=== PATIENT | female | born 1995 | race Caucasian/White ===

== ENCOUNTER 2020-07-23 18:14 | Emergency (ER) | payer OTHER ==
[~2020-07-23] VITALS: Ht 157.5 cm; Wt 73.2 kg
[2020-07-23] MEDS ORDERED: VITMTA PO (18:20)
--- NOTE | 2020-07-23 18:50 | REP ---
INDICATION: twisting/fall injury 07/22/20 COMPARISON: None. TECHNIQUE: AP, lateral, bilateral oblique and sunrise views. FINDINGS: The osseous structures and joint spaces are intact and normal. There is no evidence for acute fracture or dislocation. No joint effusion is appreciated. Surrounding soft tissues are unremarkable. No subcutaneous emphysema or radiodense foreign body. IMPRESSION: Normal examination. No acute fracture or dislocation. <Electronically signed by Smooth Awad > 07/23/20 0521
[2020-07-23] MEDS ORDERED: NAPR-837 PO (19:23)
[2020-07-23] MEDS ORDERED: NAPROXEN 250 MG TAB PO ONE (19:25)
[2020-07-23 20:02] VITALS: BP 112/72
== END 2020-07-23 20:06 | disposition home or self-care (01) ==
LOC: M ED 18:14
DX: S89.92XA Unspecified injury of left lower leg, initial encounter (principal); X50.0XXA Overexertion from strenuous movement or load, initial encounter; Y92.019 Unspecified place in single-family (private) house as the place of occurrence of the external cause; Y93.9 Activity, unspecified; Y99.9 Unspecified external cause status

== ENCOUNTER → 2020-08-08 | Outpatient (CLI) | payer OTHER ==
[~2020-08-08] MED LIST: NAPR-837 PO; VITMTA PO
--- NOTE | 2020-08-08 13:31 | REP ---
INDICATION: LT KNEE SPRAIN. COMPARISON: None. TECHNIQUE: Sagittal spin-echo proton density, T2 STIR and T2 FLASH. Coronal spin-echo proton density and fat suppressed proton density. Axial fat suppressed proton density. FINDINGS: The anterior and posterior horns of the medial meniscus are within normal limits. The anterior and posterior horns of the lateral meniscus are within normal limits. The anterior and posterior cruciate ligaments are intact. The quadriceps and patellar tendons are intact. The medial and lateral collateral ligaments are intact. The medial and lateral patellar retinacula are intact. The articular cartilages are within normal limits. There is no joint effusion or Sheikh's cyst. There is a slight degree of T2 hyper signal seen in the posterior proximal medial tibial metaphysis. IMPRESSION: There is a slight degree of marrow edema in the proximal medial tibial metaphysis posteriorly consistent with a slight osseous contusion. There is no evidence of acute internal derangement. <Electronically signed by Tristin Angeles > 08/08/20 [id number]
== END ==
LOC: M RAD 11:42
PROVIDERS: ATTEND Physician Assistant
DX: S83.92XA Sprain of unspecified site of left knee, initial encounter (principal); X58.XXXA Exposure to other specified factors, initial encounter; Y92.9 Unspecified place or not applicable

== ENCOUNTER 2020-10-02 11:26 | Emergency (ER) | payer OTHER ==
[~2020-10-02] VITALS: Ht 157.5 cm; Wt 74.7 kg
[2020-10-02 16:38] LABS: BASO % 0.4 % (0.0-1.0); EOS # 0.1 10^3/uL (0.0-0.5); EOS % 0.7 % (0.0-3.0); HEMOGLOBIN 14.1 g/dl (12.0-15.5); LYMPH # 2.5 10^3/uL (1.5-5.0); LYMPH % 29.7 % (24.0-44.0); MEAN CORPUSCULAR HEMOGLOBIN 29.5 pg (27.0-33.0); MEAN CORPUSCULAR HGB CONC 33.6 g/dl (32.0-36.5); MEAN CORPUSCULAR VOLUME 87.9 fl (80.0-96.0); MONO # 0.5 10^3/uL (0.0-0.8); MONO % 6.3 % (2.0-8.0); NEUTROPHILS # 5.3 10^3/uL (1.5-8.5); NEUTROPHILS % 62.7 % (36.0-66.0); PLATELET COUNT, AUTOMATED 288 10^3/uL (150-450); RED BLOOD COUNT 4.78 10^6/uL (4.00-5.40); WHITE BLOOD COUNT 8.5 10^3/uL (4.0-10.0)
[2020-10-02 16:53] LABS: INR 0.93; PROTHROMBIN TIME 12.9 SECONDS (12.7-14.5)
[2020-10-02 16:56] LABS: D-DIMER QUANT 1240.21 ng/ml (<500)
[2020-10-02 17:11] LABS: ALBUMIN 3.6 GM/DL (3.2-5.2); ALT/SGPT 33 U/L (12-78); BILIRUBIN,DIRECT < 0.1 MG/DL (0.0-0.2); BILIRUBIN,TOTAL 0.3 MG/DL (0.2-1.0); CK-MB VALUE MASS < 1.0 NG/ML (<3.6); CPK CREATINE PHOSPHOKINASE 104 U/L (26-192); MB/CK RELATIVE INDEX 0.96 (< OR =4); THYROXINE (T4) 10.6 UG/DL (4.5-12.0); TOTAL PROTEIN 7.4 GM/DL (6.4-8.2); TROPONIN I < 0.02 NG/ML (< 0.10)
[2020-10-02] MEDS ORDERED: ISOVUE-370 76% 100ML VIAL As Ordered ONE (18:05)
--- NOTE | 2020-10-02 18:46 | REP ---
INDICATION: DYSPNEA/COUGH. COMPARISON: None. FINDINGS: The superior mediastinal structures are midline. The cardiac silhouette is unremarkable in size, shape, and position. The diaphragmatic surfaces of the lungs are regular, and the costophrenic angles are clear. The pulmonary curry are clear. The imaged osseous structures are intact. IMPRESSION: There is no acute cardiopulmonary disease. <Electronically signed by Tristin Angeles > 10/02/20 [id number]
--- NOTE | 2020-10-02 19:33 | REPVR ---
PROCEDURE INFORMATION: Exam: CTA Chest With Contrast Exam date and time: 10/02/2020 6:33 PM Age: 25 years old Clinical indication: Shortness of breath; Additional info: SOB, pleuritic pain, elevated dimer, R/O pe TECHNIQUE: Imaging protocol: Computed tomographic angiography of the chest with contrast. 3D rendering (Not supervised by radiologist): MIP and/or 3D reconstructed images were created by the technologist. Radiation optimization: All CT scans at this facility use at least one of these dose optimization techniques: automated exposure control; mA and/or kV adjustment per patient size (includes targeted exams where dose is matched to clinical indication); or iterative reconstruction. Contrast material: ISOVUE 370; Contrast volume: 75 ml; Contrast route: INTRAVENOUS (IV); COMPARISON: CR Chest, 2 view PA, Lat 10/02/2020 5:25 PM FINDINGS: Pulmonary arteries: Normal. No pulmonary emboli. Aorta: Unremarkable. No aortic aneurysm. No aortic dissection. Lungs: Unremarkable. No consolidation. No masses. Pleural spaces: Unremarkable. No pneumothorax. No pleural effusion. Heart: Unremarkable. No cardiomegaly. No pericardial effusion. Lymph nodes: Unremarkable. No enlarged lymph nodes. Bones/joints: Unremarkable. No acute fracture. Soft tissues: Unremarkable. IMPRESSION: No pulmonary embolism. Electronically signed by: Jl Perez On 10/02/2020 19:32:48 PM
[2020-10-02] MEDS ORDERED: PROV108A INH (19:51)
[2020-10-02 20:20] VITALS: BP 126/70
--- NOTE | 2020-10-03 07:12 | ECGEPIP ---
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
== END 2020-10-02 20:33 | disposition home or self-care (01) ==
LOC: M ED 11:26
DX: J06.9 Acute upper respiratory infection, unspecified (principal); B34.8 Other viral infections of unspecified site; B34.1 Enterovirus infection, unspecified; R05 Cough; R07.89 Other chest pain; J00 Acute nasopharyngitis [common cold]; R01.1 Cardiac murmur, unspecified; Z87.59 Personal history of other complications of pregnancy, childbirth and the puerperium
CPT/HCPCS: 36415; 71046; 71275; 80047; 80076; 81001; 82550; 82553; 84436; 84443; 84484; 84702; 85025; 85379; 85610; 87798; 93005; 99284; Q9967

== ENCOUNTER 2021-03-05 13:14 | Emergency (ER) | payer OTHER ==
[~2021-03-05] VITALS: Ht 157.5 cm; Wt 77.5 kg
[~2021-03-05 13:14] MED LIST changes: +PROV108A INH
[2021-03-05] MEDS ORDERED: ONDANSETRON 4 MG ORAL DISINTEGRATING TAB PO ONE (15:30)
[2021-03-05] MEDS ORDERED: NS 1,000 ML IV ONE (16:00)
[2021-03-05 16:15] LABS: BASO % 0.4 % (0.0-1.0); EOS # 0.1 10^3/uL (0.0-0.5); EOS % 1.1 % (0.0-3.0); HEMATOCRIT 42.5 % (36.0-47.0); HEMOGLOBIN 14.4 g/dl (12.0-15.5); LYMPH # 2.3 10^3/uL (1.5-5.0); LYMPH % 30.7 % (24.0-44.0); MEAN CORPUSCULAR HEMOGLOBIN 29.1 pg (27.0-33.0); MEAN CORPUSCULAR HGB CONC 33.9 g/dl (32.0-36.5); MONO # 0.6 10^3/uL (0.0-0.8); MONO % 7.3 % (2.0-8.0); NEUTROPHILS # 4.5 10^3/uL (1.5-8.5); NEUTROPHILS % 60.1 % (36.0-66.0); PLATELET COUNT, AUTOMATED 320 10^3/uL (150-450); RED BLOOD COUNT 4.94 10^6/uL (4.00-5.40); WHITE BLOOD COUNT 7.5 10^3/uL (4.0-10.0)
[2021-03-05 17:20] LABS: HCG, SERUM QUALITATIVE NEGATIVE (NEGATIVE)
[2021-03-05 17:54] LABS: ALT/SGPT 26 IU/L (0-32); BILIRUBIN,TOTAL 0.3 MG/DL (0.2-1.0); BLOOD UREA NITROGEN 7 MG/DL (7-18); CALCIUM LEVEL 9.1 MG/DL (8.5-10.1); CARBON DIOXIDE LEVEL 26 mmol/L (20-29); CHLORIDE LEVEL 108 MEQ/L (98-107); CREATININE FOR GFR 0.58 MG/DL (0.55-1.30); GLOMERULAR FILTRATION RATE > 60.0 (>60); GLUCOSE, FASTING 108 MG/DL (70-100); POTASSIUM SERUM 4.5 MEQ/L (3.5-5.1); SODIUM LEVEL 139 MEQ/L (136-145)
[2021-03-05 17:55] LABS: ALBUMIN 3.6 GM/DL (3.2-5.2); BILIRUBIN,DIRECT < 0.1 MG/DL (0.0-0.2); LIPASE 135 U/L (73-393); TOTAL PROTEIN 7.2 GM/DL (6.4-8.2)
[2021-03-05] MEDS ORDERED: ISOVUE-370 76% 100ML VIAL As Ordered ONE (18:28)
[2021-03-05] MEDS ORDERED: ZOFR4TAB16 PO (20:20)
[2021-03-05 20:27] VITALS: BP 126/74
== END 2021-03-05 21:13 | disposition home or self-care (01) ==
LOC: M ED 13:14
DX: U07.1 COVID-19 (principal); R11.10 Vomiting, unspecified
CPT/HCPCS: 71275; 80053; 82248; 83690; 84703; 85025; 96360; 99284; Q0162; Q9967

== ENCOUNTER → 2021-05-01 | Outpatient (CLI) | payer OTHER ==
[~2021-05-01] MED LIST changes: +ZOFR4TAB16 PO
== END ==
LOC: M WHC 12:32
PROVIDERS: ATTEND Obstetrics & Gynecology
DX: R92.2 Inconclusive mammogram (principal); N63.13 Unspecified lump in the right breast, lower outer quadrant

== ENCOUNTER → 2021-05-21 | Outpatient (CLI) | payer OTHER ==
[~2021-05-21] MED LIST changes: +**SFHN** LIDOCAINE 1% MDV 20ML VIAL ONE; +**SFHN** SODIUM BICARBONATE 8.4% 50MEQ 50ML VIAL ONE
[2021-05-21 10:50] VITALS: BP 114/80
== END ==
LOC: M WHCPRO 09:23
PROVIDERS: ATTEND Obstetrics & Gynecology
DX: D24.2 Benign neoplasm of left breast (principal); N60.32 Fibrosclerosis of left breast